=== PATIENT | male | born 1990 | race Caucasian/White ===

== ENCOUNTER 2020-10-27 10:45 | Emergency (ER) | payer MEDICAID ==
[2020-10-27 11:04] VITALS: BP 139/83
--- NOTE | 2020-10-27 11:37 | XRAY Report ---
PROCEDURE: Wrist 3 View RT INDICATIONS: wrist pain TECHNIQUE: 3 views of the wrist were acquired. COMPARISON: None. FINDINGS: Bones: No acute fractures or dislocations. No suspicious bony lesions. Soft tissues: No suspicious soft tissue calcifications. IMPRESSION: No acute osseous abnormality. If symptoms persist or there is clinical suspicion, further evaluation with CT or MRI may be obtained. Reviewed by: Darinel Morris MD on 10/27/2020 11:36 AM PDT Approved by: Darinel Morris MD on 10/27/2020 11:36 AM PDT Station ID: [id number]
--- NOTE | 2020-10-27 12:35 | ED Physician Documentation ---
History of Present Illness - Stated complaint Stated Complaint: RT WRIST PX - Chief complaint Chief Complaint: Ext Problem - History obtained from History obtained from: Patient - History of Present Illness Timing: How many weeks ago (1) Pain level max: 6 Pain level now: 4 - Additonal information Additional information: Patient is a 30-year-old male who presents to the emergency department with right wrist pain with movement, better with rest. Occasional numbness to the tip of the right thumb. Patient is right-handed. 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 Occasionally the pain shoots up the arm from the wrist. Also worse with movement of the thumb. Denies any injury. Review of Systems Constitutional: denies: Fever, Chills GI: denies: Nausea, Vomiting, Diarrhea Skin: denies: Rash Musculoskeletal: denies: Neck pain, Back pain Neurologic: denies: Headache PD PAST MEDICAL HISTORY - Past Medical History Past Medical History: Yes Respiratory: Asthma - Past Surgical History Past Surgical History: No - Present Medications Home Medications: Ambulatory Orders Medication Instructions Recorded Confirmed Budesonide/Formoterol Fumarate 160 mcg .ROUTE BID 10/27/20 10/27/20 [Symbicort 80-4.5 Mcg Inhaler] FLUoxetine [PROzac] 20 mg PO DAILY 10/27/20 10/27/20 Famotidine [Pepcid] 40 mg PO DAILY 10/27/20 10/27/20 Liraglutide [Victoza 2-Daniel] 1.2 mg SQ DAILY 10/27/20 10/27/20 Meloxicam [Mobic] 7.5 mg PO BID PRN #20 tablet 10/27/20 Montelukast [Singulair] 10 mg PO DAILY 10/27/20 10/27/20 - Allergies Allergies/Adverse Reactions: Allergies Allergy/AdvReac Type Severity Reaction Status Date / Time No Known Drug Allergies Allergy Verified 10/27/20 11:04 - Social History Does the pt smoke?: No Smoking Status: Never smoker Does the pt drink ETOH?: Yes Does the pt have substance abuse?: Yes Substance Use and Type: Marijuana - Immunizations Immunizations are current?: Yes PD ED PE NORMAL - Vitals Vital signs reviewed: Yes - General General: Alert and oriented X 3, No acute distress - HEENT HEENT: Moist mucous membranes - Neck Neck: Supple, no meningeal sign - Cardiac Cardiac: RRR - Respiratory Respiratory: No respiratory distress, Clear bilaterally - Derm Derm: Warm and dry - Extremities Extremities: No deformity - Neuro Neuro: Alert and oriented X 3 - Free text exam Free text exam: Tender to palpation diffusely about the right wrist. No swelling. He does have symptoms with percussion over the radial nerve. No pain with percussion of the median or ulnar nerves. Neurovascularly intact. Full range of motion. Results - Vitals Vitals: Vital Signs - 24 hr 10/27/20 11:01 Temperature 36.4 C L Heart Rate 91 Respiratory 16 Rate Blood Pressure 139/83 H O2 Saturation 97 Oxygen O2 Source Room air - Rads (name of study) Right wrist x-ray Radiology: Prelim report reviewed, EMP read contemporaneously, See rad report (No acute abnormality) PD MEDICAL DECISION MAKING - ED course Complexity details: reviewed results, re-evaluated patient, considered differential, d/w patient ED course: 30-year-old male presents to the emergency department with right wrist pain. Appears to be tendinitis versus a irritation of the radial nerve. We will place in a thumb spica splint, Velcro and have him follow-up with his doctor after rest and conservative measures. Will place on anti-inflammatories as well. Neurovascularly intact. Patient counseled regarding signs and symptoms for which I believe and urgent re-evaluation would be necessary. Patient with good understanding of and agreement to plan and is comfortable going home at this time This document was made in part using voice recognition software. While efforts are made to proofread this document, sound alike and grammatical errors may occur. Departure - Departure Disposition: 01 Home, Self Care Clinical Impression: Right wrist tendonitis Condition: Good Instructions: Tendonitis and Tenosynovitis Follow-Up: AMINTA WOODS DO [Primary Care Provider] - Within 1 week Prescriptions: Meloxicam [Mobic] 7.5 mg PO BID PRN #20 tablet PRN Reason: Pain Comments: Follow-up with your doctor for further care. Use the splint as needed to help with the discomfort. Resting the wrist should help your symptoms. Your x-ray does not show any acute abnormalities today.
== END 2020-10-27 12:53 | disposition home or self-care (01) ==
LOC: ED 10:45
DX: M77.8 Other enthesopathies, not elsewhere classified (principal); M25.531 Pain in right wrist
CPT/HCPCS: 99283; 99284

== ENCOUNTER 2021-02-28 13:50 | Outpatient (CLI) | payer MEDICAID ==
[2021-03-02 13:45] LABS: ANA SCREEN NEGATIVE (NEGATIVE)
== END 2021-02-28 23:59 | disposition home or self-care (01) ==
LOC: LAB.WCP 13:50
PROVIDERS: ATTEND Family Medicine
DX: Z82.69 Family history of other diseases of the musculoskeletal system and connective tissue (principal)
CPT/HCPCS: 36415; 85651; 86038; 86140